=== PATIENT | female | born 1990 | race Caucasian/White ===

== ENCOUNTER 2018-02-19 19:13 | Emergency (ER) | payer BC ==
[2018-02-19 20:29] VITALS: BP 141/86; PULSE 90; RESP 18; TEMP 98
[2018-02-19 20:32] VITALS: O2SAT 99
--- NOTE | 2018-02-19 20:32 | ED PDOC ---
HPI: Psych/Substance Abuse Time Seen by Provider: 02/19/18 19:16 Chief Complaint (Nursing): Psychiatric Evaluation History Per: Patient History/Exam Limitations: no limitations Onset/Duration Of Symptoms: Hrs Additional Complaint(s): Hx of anxiety and depression presenting with depressed feelings. States that today is the anniversary of her grandmother's and she was feeling sad about. Admits to having suicidal ideation in the past (she states since she was 14 years old) but currently denies suicidal ideation or homicidal ideation. She states that she has self-discontinued her fluoxetine and no longer has any more and wasn't able to reach her psychiatrist for a refill and came to the ER for a dose of medication to help her calm down. Denies alcohol use, states she uses cannabis intermittently but none today. Active smoker. PMD: Dr. Ortega at [facility] Past Medical History Reviewed: Historical Data, Nursing Documentation, Vital Signs Vital Signs: Last Vital Signs Temp 98.6 F 02/19/18 19:16 Pulse 102 H 02/19/18 19:16 Resp 20 02/19/18 19:16 BP 139/97 H 02/19/18 19:16 Pulse Ox 99 02/19/18 19:16 - Medical History PMH: Anxiety, Depression - Family History Family History: States: Unknown Family Hx - Home Medications Home Medications: Ambulatory Orders Medication Instructions Recorded Amoxicillin/Clavulanate Pota 1 tab PO BID #14 tab 11/27/13 [Augmentin 875 mg-125 mg] Ketoconazole 2% Cr [Nizoral] 60 gm TOP BID #0 tube 11/27/13 Sulfamethoxazole/Trimethopri 1 tab PO BID #14 tab 11/27/13 [Bactrim Ds 800 mg-160 mg] Cyclobenzaprine HCl [Flexeril] 10 mg PO Q8 #20 tab 06/29/14 Ibuprofen [Motrin] 600 mg PO Q6 PRN #20 tab 06/29/14 Hydrocortisone 2.5% 1 gm TOP BID PRN #30 gm 11/07/14 Permethrin 5% [Permethrin 5% Cream] 60 gm EXT ONCE #1 tube 11/07/14 hydrOXYzine Pamoate [Vistaril] 50 mg PO Q6 PRN #24 cap 11/07/14 Sulfamethoxazole/Trimethopri 1 tab PO BID #14 tab 02/24/15 [Bactrim Ds 800 mg-160 mg] - Allergies Allergies/Adverse Reactions: Allergies Allergy/AdvReac Type Severity Reaction Status Date / Time No Known Allergies Allergy Verified 02/19/18 19:16 Review of Systems ROS Statement: Except As Marked, All Systems Reviewed And Found Negative Psych: Positive for: Anxiety, Depression. Negative for: Psychosis, Suicidal ideation Physical Exam - Reviewed Nursing Documentation Reviewed: Yes - Physical Exam Appears: Positive for: Well, Non-toxic, No Acute Distress Head Exam: Positive for: ATRAUMATIC, NORMAL INSPECTION, NORMOCEPHALIC Skin: Positive for: Normal Color, Warm, DRY Eye Exam: Positive for: EOMI, Normal appearance, PERRL ENT: Positive for: Normal ENT Inspection Neck: Positive for: Normal, Painless ROM Cardiovascular/Chest: Positive for: Regular Rate, Rhythm Respiratory: Positive for: CNT, Normal Breath Sounds Gastrointestinal/Abdominal: Positive for: Normal Exam, Soft Back: Positive for: Normal Inspection Extremity: Positive for: Normal ROM Neurologic/Psych: Positive for: Alert, 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 Negative for: Motor/Sensory Deficits - ECG O2 Sat by Pulse Oximetry: 99 Pulse Ox Interpretation: Normal Medical Decision Making Medical Decision MakinPM Patient presenting with anxiety state on anniversary of grandmother's --Patient currently oriented, cooperative, does not pose a danger to herself at this time --Appears genuinely anxious, will provide anxiolytic and consult crisis 830PM --Crisis cleared patient, referrals and resources given --Dx: Anxiety by Dr. James --Well appearing upon discharge Disposition - Clinical Impression Clinical Impression: Anxiety - Disposition Referrals: Devon Ortega MD [Family Provider] - Disposition: Routine/Home Disposition Time: 20:34 Condition: GOOD Instructions: Anxiety, Adult (DC) Forms: [employer] (Lithuanian)
== END 2018-02-19 20:30 | disposition home or self-care (01) ==
LOC: H.ER 19:13
DX: F41.9 Anxiety disorder, unspecified (principal); Z86.59 Personal history of other mental and behavioral disorders